=== PATIENT | female | born 1945 | race Caucasian/White ===

== ENCOUNTER 2020-07-08 09:25 | Outpatient (CLI) | payer MEDICARE, BC, SELFPAY ==
--- NOTE | 2020-07-08 09:28 | ECG_ITS ---
Measurements Intervals [place] Rate: 77 P: 30 [place]: 153 QRS: 17 QRSD: 82 T: 12 QT: 347 QTc: 395 Interpretive Statements SINUS RHYTHM MINIMAL Q WAVES- HIGH LATERAL LEADS BASELINE ARTIFACT- II, III, AVF BORDERLINE ECG Electronically Signed On 07-08-2020 10:03:18 CDT by Virgil Gonzalez D.O.
[2020-07-08 09:58] LABS: Anion Gap 8 mmol/L (8-16); Blood Urea Nitrogen 25 mg/dL (7-17); Carbon Dioxide 28 mmol/L (22-30); Chloride 102 mmol/L (98-107); Estimated Glomerular Filt Rate 32; Glucose 121 mg/dL (65-105); Potassium 4.4 mmol/L (3.4-5.0); Sodium 138 mmol/L (137-145)
== END 2020-07-08 09:26 | disposition home or self-care (01) ==
LOC: ANHSURGERY 09:28
PROVIDERS: Anesthesiology; PCP Emergency Medicine; Visit Provider Orthopaedic Surgery
DX: Z01.818 Encounter for other preprocedural examination (principal); I10 Essential (primary) hypertension; R94.31 Abnormal electrocardiogram [ECG] [EKG]
CPT/HCPCS: 36415; 80048; 93005

== ENCOUNTER 2020-07-13 02:04 | Outpatient (CLI) | payer MEDICARE, BC, SELFPAY ==
[2020-07-13 17:03] LABS: SARS-CoV-2 RNA PCR Negative
== END 2020-07-13 02:05 | disposition home or self-care (01) ==
LOC: ANHCOVIDDT 02:04
PROVIDERS: PCP Emergency Medicine; Visit Provider Orthopaedic Surgery
DX: Z01.812 Encounter for preprocedural laboratory examination (principal); Z20.828 Contact with and (suspected) exposure to other viral communicable diseases
CPT/HCPCS: 87635; C9803; U0003

== ENCOUNTER 2020-07-15 00:04 | Day surgery (SDC) | payer MEDICARE, BC, SELFPAY ==
[2020-07-07 14:29] VITALS: BMI 32.1
[2020-07-15] VITALS (9 sets, daily range): BP systolic 108–149; BP diastolic 50–81; PULSE 79–89; RESP 12–18; TEMP 35.9–36.6; O2SAT 94–99
--- NOTE | ~2020-07-15 | XR_ITS ---
EXAMINATION: XR surgery orthopedic EXAM DATE: 07/15/2020 12:05 INDICATION: Hammertoe. Orthopedic surgery. TECHNIQUE: Fluoroscopy used during XR surgery orthopedic performed by Dr. Jorden Lobo MD. The DAP for this procedure 3.9 cGycm2. There was 42 seconds of fluoroscopy time utilized with 2 static i mages available (for this procedure and contralateral foot procedure performed at same time. FINDINGS: Images demonstrate left 2nd toe fixation device bridging the interphalangeal joints. Magaly elate with procedure note. IMPRESSION: Fluoroscopy used during left 2nd toe surgery. Reviewed, dictated and finalized at location A.
--- NOTE | ~2020-07-15 | XR_ITS ---
XR surgery orthopedic DATE: 07/15/2020 12:05 INDICATION: Right second hammertoe TECHNIQUE: 3 AP and lateral spot images of the toes, including AP and lateral views on the right and single frontal view on the left 42 seconds fluoroscopy time 3.8682 cGycm2 Total DAP COMPARISON: None FINDINGS: There is a fixation device extending through the distal, middle and proximal phalanges of t he right second toe. K wires extend along of the phalanges of the second and third and fourth digits, extending into the r espective metatarsal bones. Plate and screws are noted across the first metatarsophalangeal joint. Cerclage wire is noted at a healed fracture deformity at the distal shaft of the fifth metatarsal darrell lópez IMPRESSION: Operative fixation of right second and left second through fourth hammertoes Status post surgical fusion at left first metatarsophalangeal joint Status post operative fixation of distal fifth metatarsal shaft fracture Reviewed, dictated and finalized at [facility]. Reviewed, dictated and finalized at location A. IMPRESSION: Operative fixation of right second and left second through fourth h ammertoes Status post surgical fusion at left first metatarsophalangeal joint Status post operative fixation of distal fifth metatarsal shaft fracture
--- NOTE | 2020-07-15 07:08 | WPDHPUPDATE1 ---
History and Physical Update Update Date/Time: 07/15/20 07:08 History and Physical has been reviewed, including an updated exam of the patient. There are NO changes in the patient's condition.Covid test negative. Risks, benefits, and alternatives have been discussed and questions answered. Patient agrees to proceed with procedure.
[2020-07-15] MEDS: LACTATED RINGERS 1,000 ML 30 ML IV CONT ×2 (08:15→12:10)
[2020-07-15] MEDS: ACETAMINOPHEN 500 MG TABLET 1000 MG PO (08:17)
[2020-07-15] MEDS: KETOROLAC 15 MG/ML VIAL (*BKC) IV PUSH (08:18)
--- NOTE | 2020-07-15 09:17 | WPDANESEPPF ---
Anes - Initial Pre Proc Eval Procedure: Operation Date: 07/15/20 09:30 Proposed Procedures p Left Second and Third Toe Reconstruction, - Jorden Lobo MD s Repair Right Second Hammer Toe - Jorden Lobo MD Date/Time: 07/15/20 09:17 Surgeon: Jorden Lobo MD Pre Op Diagnosis: left 2nd and 3rd crossover toe, rt 2nd hammer toe Patient Data Age: 74 Gender: F Height: 5 ft 1 in Weight: 80.7 kg Last Vital Signs Temp 35.9 C L 07/15/20 07:48 Pulse 79 07/15/20 07:48 Resp 18 07/15/20 07:48 BP 149/75 H 07/15/20 07:48 Pulse Ox 99 07/15/20 07:48 Allergies Allergy/AdvReac Type Severity Reaction Status Date / Time No Known Allergies Allergy Mild Verified 07/07/20 14:24 Home Medications Medication Instructions Recorded Confirmed Type acetaminophen 325 mg tablet 325 mg PO Q6H PRN 06/18/20 07/07/20 History amlodipine 5 mg tablet 5 mg PO DAILY 06/18/20 07/07/20 History ascorbic acid (vitamin C) 1,000 mg 500 mg PO DAILY 06/18/20 07/07/20 History tablet atenolol 50 mg tablet 50 mg PO DAILY 06/18/20 07/07/20 History cholecalciferol (vitamin D3) 125 125 mcg PO DAILY 06/18/20 07/07/20 History mcg (5,000 unit) capsule fenofibrate 160 mg tablet 160 mg PO DAILY 06/18/20 07/07/20 History hydrochlorothiazide 12.5 mg capsule 12.5 mg PO DAILY 06/18/20 07/07/20 History lorazepam 0.5 mg tablet 0.5 mg PO BID PRN 06/18/20 07/07/20 History losartan 50 mg tablet 50 mg PO DAILY 06/18/20 07/07/20 History multivitamin 1 tablet PO DAILY 06/18/20 07/07/20 History omeprazole 20 mg capsule,delayed 20 mg PO DAILY 06/18/20 07/07/20 History release tramadol 50 mg tablet 50 mg PO Q6H PRN 06/18/20 07/07/20 History Patient hx anesthesia problems: post op nausea/vomiting Family hx anesthesia problems: none PMFSH Past Medical History Medical History Crossover toe deformity of left foot GERD (gastroesophageal reflux disease) Hammertoe of second toe of right foot Hypertension Renal cancer Family History Family History Other Family history of arthritis Hypertension Social History Social History Smoking status: Never smoker Alcohol intake: current Living arrangements: with family Spiritual care concerns: No Anes - Eval Final PreProcedure Day of Procedure 07/15/20 09:17 Patient weight: obese Heart: regular rate and rhythm Lungs: clear to auscultation Airway: Mallampati scale class II Neurological: alert and oriented Last oral intake: >/= 8 hours ASA classification: III Emergent: no Anesthetic plan: proceed Anesthesia type and monitoring: general LMA and standard monitoring Informed Consent: The patient's anesthetic plan and its attendant risks and benefits were discussed with the patient/family/POA. Questions were solicited and answers provided to the satisfaction of the patient/family/POA.
[2020-07-15] MEDS: ceFAZolin 2 GM/D5W 50 ML 2 GM/50 ML BAG IVPB (09:42)
--- NOTE | 2020-07-15 12:20 | PM.PROC ---
Procedure Note - Detailed Date of procedure: 07/15/20 Pre-op diagnosis: left 2nd and 3rd crossover toe, rt 2nd hammer toe Post-op diagnosis: same Procedure performed: left 2nd and 3rd crossover toe reconstruction, right 2nd hammertoe Description of procedure: 74-year-old woman with bilateral forefoot deformity. Underwent previous surgery on the left side with subsequent recurrence of deformity of the 2nd 3rd and 4th toe. Has failed conservative treatment and presents for operative treatment. Also has significant hammertoe on the right 2nd toe causes problems with shoe wear and is at risk for ulceration presents for operative treatment. What was done: Informed consent was given. Operative extremities marked in preoperative holding area. Patient received intravenous antibiotics. She Was brought to the the operating room and underwent general anesthetic by the anesthesia team. She was positioned supine on the operating room table. bilateral feet prepped and draped as usual sterile surgical fashion a ChloraPrep skin solution. Time-out performed confirming the patient's site of surgery in the plan. Left foot addressed 1st. Foot and ankle exsanguinated and a calf tourniquet inflated to 225 mmHg. Previous longitudinal incision between the 2nd and 3rd metatarsals made with 15 blade knife. Hemostasis controlled electrocautery. Dissection carried down of the 2nd metatarsophalangeal joint which was noted to have arthrodesis to. Osteotome was used to break open the arthrodesis. Distal 2nd metatarsal shaped with a rongeur. We then position the arthro flex allograft as an interposition in the metatarsophalangeal joint. The toe was then pinned with a 0.062 in K-wire in corrected position. Image intensification confirmed alignment. Thorough irrigation the capsule was closed with 3 Monocryl interrupted suture. Similar procedure for the 3rd toe. Distal 3rd metatarsal shaped with the rongeur. Arthro Flax allograft position as an interposition graft and toe alignment held with a 0.062 in K-wire. Image intensification confirmed alignment. Wound thoroughly irrigated antibiotic solution. Fourth toe noted to have dorsiflexion deformity. Osteoclasis performed and a 0.062 in K-wire was used percutaneously to hold position. Image intensification confirm the final position and alignment. New wound closed with 3 Monocryl interrupted suture. Skin closed with 4 nylon running suture. Sterile dressing applied. Tourniquet released and good capillary refill in the toes noted. Right foot addressed. Foot and ankle exsanguinated and a calf tourniquet inflated to 225 mmHg. Dorsal longitudinal incision made over the 2nd toe proximal interphalangeal joint with 15 blade knife. Extensor tendon excised over the proximal interphalangeal joint. Distal into the proximal phalanx removed with a bone cutter. Proximal into the middle phalanx removed with a rongeur. Thorough irrigation of the joint. Fixation and alignment then achieved with the hammertoe implant. Image intensification confirmed alignment and placement of the hardware. Wound irrigated and closed with 3 0 Monocryl interrupted suture and 4 nylon interrupted suture. Sterile dressing applied. Tourniquet released good capillary refill noted in the toe. Patient awoke from anesthesia, extubated and taken to the recovery room in stable condition. All sponge needle and instrument counts were correct at the end of the case. Implants: 0.062 in K-wire x3, arthro flex soft tissue interposition allograft, 14 mm hammertoe implant x1 Anesthesia: GLMA Surgeon: Jorden Lobo MD [employer]: 1st assistant banquet manager Estimated blood loss (mL): 20 Tourniquet time (min): 63 Drains: No Packing: No Pathology: none sent Complications: None Condition: stable Disposition: PACU
== END 2020-07-15 14:35 | disposition home or self-care (01) ==
PROVIDERS: PCP Emergency Medicine; Visit Provider Orthopaedic Surgery
PROC: (CPT 28750; principal; 2020-07-15 09:30)
PROC: (CPT 28285; 2020-07-15 09:30)
DX: M20.5X2 Other deformities of toe(s) (acquired), left foot (principal); M20.41 Other hammer toe(s) (acquired), right foot; I10 Essential (primary) hypertension; K21.9 Gastro-esophageal reflux disease without esophagitis; Z85.528 Personal history of other malignant neoplasm of kidney; E66.9 Obesity, unspecified; Z68.33 Body mass index [BMI] 33.0-33.9, adult
CPT/HCPCS: 28285; 28308 ×2; A9270; C1713; J0690; J1100; J1885; J2370; J2405; J2704; J3010; J7120

== ENCOUNTER 2022-01-19 10:13 | Outpatient (CLI) | payer MEDICARE, BC, SELFPAY ==
--- NOTE | 2022-01-19 10:30 | ECG_ITS ---
Measurements Intervals [place] Rate: 81 P: 55 MS: 182 QRS: 24 QRSD: 81 T: 44 QT: 360 QTc: 419 Interpretive Statements SINUS RHYTHM COMPARED TO ECG 07/08/2020 10:02:23 NO SIGNIFICANT CHANGES Electronically Signed On 01-19-2022 14:01:32 CDT by Adali Benton M.D.
[2022-01-19 11:49] LABS: Anion Gap 6 mmol/L (8-16); Blood Urea Nitrogen 23 mg/dL (7-17); Calcium 8.8 mg/dL (8.4-10.2); Carbon Dioxide 28 mmol/L (22-30); Chloride 106 mmol/L (98-107); Estimated Glomerular Filt Rate 44; Glucose 136 mg/dL (65-110); Sodium 140 mmol/L (137-145)
== END 2022-01-19 10:14 | disposition home or self-care (01) ==
LOC: ANHSURGERY 10:18
PROVIDERS: Anesthesiology; PCP Nurse Practitioner Family; Visit Provider Orthopaedic Surgery
DX: Z79.899 Other long term (current) drug therapy (principal); I10 Essential (primary) hypertension; Z01.818 Encounter for other preprocedural examination
CPT/HCPCS: 36415; 80048; 93005

== ENCOUNTER 2022-01-23 01:02 | Day surgery (SDC) | payer MEDICARE, BC, SELFPAY ==
[2022-01-17 09:31] VITALS: BMI 31.8
--- NOTE | 2022-01-17 09:43 | PC.NURSE ---
Report to the Outpatient Waiting Room, entrance under the green pavilion located off [facility], at time _0730_ on date _01/23/22_. OR Time: __0930__. - You and your visitor will be asked a series of questions to screen for COVID 19 for your protection. - A mask is required within the hospital. One visitor will be allowed to accompany the patient into the hospital. Patients visitor will be instructed to remain with patient at all times or leave the building. We will allow the visitor to come back to the postoperative area when patient is ready. Preoperative COVID Testing Requirements: NONE Patients may have clear liquids (water, carbonated beverages, clear teas, apple juice) until 3 hours prior to surgery (0630 AM) with a maximum of 20 ounces. - No food from midnight until time of surgery Take the following medications with a SIP of water the morning of surgery: _AMLODIPINE, ATENOLOL, PAIN MED & LORAZEPAM IF NEEDED_ Medications to discontinue per ANESTHESIA - _ALL VITAMINS AND HERBAL SUPPLEMENTS, 3 DAYS PRIOR TO SURGERY, Date to take last dose_01/19/22____ Please no make-up, nail togolese, hairspray, perfume, deodorant, or body powder the day of surgery. No jewelry (including any body piercings) or valuables the day of surgery, leave them at home. Please take a shower or bath the night before, or the morning of, surgery with an antibacterial soap. Wear comfortable, loose fitting clothing. Children are encouraged to wear pajamas. - Jewelry must be removed prior to entering the operating room. Rings and piercings that are not removed may be cut off. - The hospital will not accept responsibility for valuables. - Please leave all valuables, including medications, at home the day of surgery. If you are going home after surgery, a licensed transit driver must drive you home. - NO public transportation without another adult. - We recommend that an adult stay with you for 24 hours following discharge. - We also recommend that you do not drive, make important decision, drink alcoholic beverages, or take any drugs that were not prescribed by your health care provider for at least 24 hours after your discharge time. Follow any additional instructions given to you from your surgeon. Telephone instructions given to ____PT and asked if any additional questions and then verbalized understanding. Patient advised to call surgeon office or pre surgery nurse liaison [phone] if any additional questions.
--- NOTE | 2022-01-21 13:43 | WPDANESEPPF ---
Anes - Initial Pre Proc Eval Procedure: Operation Date: 01/23/22 09:30 Proposed Procedures p Left Foot Second and Third Claw Toe Correction, Left Plantar Fascia Injection - Jorden Lobo MD Date/Time: 01/21/22 13:43 Surgeon: Jorden Lobo MD Pre Op Diagnosis: left 2nd and 3rd claw toe, plantar fascitis Patient Data Age: 76 Gender: F Height: 1.52 m Weight: 74.09 kg Allergies Allergy/AdvReac Type Severity Reaction Status Date / Time No Known Allergies Allergy Mild Verified 01/17/22 09:27 Home Medications Medication Instructions Recorded Confirmed Type acetaminophen 325 mg tablet 325 mg PO Q6H PRN 06/18/20 01/17/22 History amlodipine 5 mg tablet 5 mg PO QAM 06/18/20 01/17/22 History ascorbic acid (vitamin C) 1,000 mg 500 mg PO DAILY 06/18/20 01/17/22 History tablet atenolol 50 mg tablet 50 mg PO DAILY 06/18/20 01/17/22 History cholecalciferol (vitamin D3) 125 125 mcg PO DAILY 06/18/20 01/17/22 History mcg (5,000 unit) capsule hydrochlorothiazide 12.5 mg capsule 12.5 mg PO QAM 06/18/20 01/17/22 History lorazepam 0.5 mg tablet 0.5 mg PO BID PRN 06/18/20 01/17/22 History losartan 50 mg tablet 50 mg PO DAILY 06/18/20 01/17/22 History multivitamin 1 tablet PO DAILY 06/18/20 01/17/22 History omeprazole 20 mg capsule,delayed 20 mg PO DAILY 06/18/20 01/17/22 History release amoxicillin 500 mg capsule 500 mg PO Q12H 01/13/22 01/17/22 History denosumab 60 mg/mL subcutaneous 60 mg SUBCUT [id number] 01/13/22 01/17/22 History syringe magnesium 250 mg tablet 250 mg PO DAILY 01/13/22 01/17/22 History simvastatin 20 mg tablet 20 mg PO HS 01/13/22 01/17/22 History tramadol 50 mg tablet 50 mg PO Q6H PRN 01/13/22 01/17/22 History calcium 600 mg PO DAILY 01/17/22 01/17/22 History Patient hx anesthesia problems: none Family hx anesthesia problems: none Results Review: All pre-operative results and documents have been reviewed as part of the pre-operative evaluation. [facility] Past Medical History Medical History (Updated 01/21/22 @ 13:43 by Laurent Harmon DO) Crossover toe deformity of left foot GERD (gastroesophageal reflux disease) Hammertoe of second toe of right foot Hyperlipidemia Hypertension Plantar fasciitis of left foot Renal cancer Surgical History Surgical History (Updated 01/21/22 @ 13:43 by Laurent Harmon DO) History of nephrectomy History of partial thyroidectomy Family History Family History Other Family history of arthritis Hypertension Social History Social History Smoking status: Never smoker Second hand tobacco smoke exposure: No Alcohol intake: current Substance use: never Substance use type: does not use Living arrangements: alone Spiritual care concerns: No Anes - Eval Final PreProcedure Day of Procedure 01/21/22 13:43 Patient weight: obese Heart: regular rate and rhythm Lungs: clear to auscultation and normal air movement Airway: Mallampati scale class II Neurological: alert and oriented Last oral intake: >/= 8 hours ASA classification: III Emergent: no Anesthetic plan: proceed Anesthesia type and monitoring: general LMA and standard monitoring Results Review: All pre-operative results and documents have been reviewed as part of the pre-operative evaluation. Informed Consent: The patient's anesthetic plan and its attendant risks and benefits were discussed with the patient/family/POA. Questions were solicited and answers provided to the satisfaction of the patient/family/POA.
[2022-01-23] VITALS (8 sets, daily range): BP systolic 101–136; BP diastolic 61–75; PULSE 71–84; RESP 12–16; TEMP 36–36.6; O2SAT 96–100
--- NOTE | ~2022-01-23 | XR_ITS ---
EXAMINATION: XR surgery orthopedic DATE: 01/23/2022 11:42 INDICATION: The second and third claw toe correction TECHNIQUE: 4 fluoroscopic images of the left forefoot were obtained during procedure performed by Dr. Lobo. Radiologist was not present for the imaging or procedure. The amount of fluoroscopy time us ed during this procedure was 0.3 minutes. COMPARISON: Left foot radiographs dated 08/03/2020 FINDINGS: New dorsal plate and screw fixations across the second and third metatarsophalangeal joints. Prior os teotomies at the heads of the second-fourth metatarsals with residual lucent fixation pin tracks at t he second-fourth toes. Solidly fused first metatarsophalangeal arthrodesis with compression screw and dorsal plate and screw fixation. Old healed osteotomy at the neck of the fifth metatarsal with cercl age wire fixation. No fracture. Expected small amount of gas in the soft tissues surrounding the seco nd third metatarsophalangeal joints. IMPRESSION: 1. Fluoroscopy utilized during arthrodesis with plate and screw fixations at the second-third metatar sophalangeal joints. See procedure note for further detail. 2. Additional chronic postoperative changes as detailed above. Reviewed, dictated and finalized at location A. IMPRESSION: 1. Fluoroscopy utilized during arthrodesis with plate and screw fixations at th e second-third metatarsophalangeal joints. See procedure note for further detai l. 2. Additional chronic postoperative changes as detailed above.
--- NOTE | 2022-01-23 07:30 | WPDHPUPDATE1 ---
History and Physical Update Update Date/Time: 01/23/22 07:30 History and Physical has been reviewed, including an updated exam of the patient. There are NO changes in the patient's condition. Risks, benefits, and alternatives have been discussed and questions answered. Patient agrees to proceed with procedure.
[2022-01-23] MEDS: LACTATED RINGERS 1,000 ML 30 ML IV CONT ×2 (08:00→11:48)
[2022-01-23] MEDS: ACETAMINOPHEN 500 MG TABLET 1000 MG PO (08:47)
[2022-01-23] MEDS: KETOROLAC 15 MG/ML VIAL (*BKC) IV PUSH (08:48)
[2022-01-23] MEDS: ceFAZolin 2 GM/D5W 50 ML 2 GM/50 ML BAG IVPB (09:42)
[2022-01-23] MEDS: BUPIVACAINE HCL 0.5% PF 30 ML VIAL 20 ML INFILTRATE (10:14)
[2022-01-23] MEDS: methylPREDNISolone ACETATE 40 MG/ML VIAL IM (11:35)
--- NOTE | 2022-01-23 12:04 | W.PM.PROC2 ---
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 She has failed previous treatment with metatarsal head resection and has had recurrent deformity. Difficulty wearing shoes in with activity. She presents for operative treatment. Recalcitrant left plantar heel pain as well. Has elected for plantar fascia injection. Description of Procedure Patient was identified in the preoperative holding area and the operative extremity was marked. Previous discussion of the risks, benefits and alternatives of surgery was reviewed with the patient. Informed consent given. The patient was then taken the operating room she underwent a general anesthetic by the anesthesia team. She was positioned supine on the operating room table. Left foot and ankle prepped and draped usual sterile surgical fashion using ChloraPrep skin solution. Foot ankle exsanguinated and calf tourniquet inflated to 225 mmHg. Previous dorsal longitudinal incision in the 2nd webspace utilized and made with a 15 blade knife. Hemostasis controlled electrocautery. The 2nd metatarsophalangeal joint was then exposed. Joint was reduced and provisionally pinned. Fixation achieved with a 6 hole plate, 1.6 mm. Image intensification confirmed alignment. Dissection was then carried down to the 3rd metatarsophalangeal joint which also was realigned and provisionally pinned. Fixation achieved with a 6 hole 1.6 mm plate. Image intensification confirmed final alignment. Wound thoroughly irrigated with antibiotic solution. The provisional K-wires were removed. Soft tissue closed with 3-0 Monocryl interrupted suture. Skin repaired with 4-0 nylon running suture. 25 gauge needle then used to inject 40 mg of Depo-Medrol into the left plantar heel and origin of plantar fascia. Tourniquet then released good capillary refill noted in the toes. Sterile dressing applied. Patient woke from anesthesia, extubated taken to recovery room stable condition. All sponge, needle instrument counts correct in the case. Implants Arthrex 6 hole 1.6 mm plate x2 with screws. Estimated Blood Loss 10 Tourniquet Time 70 Drains No Packing No Pathology None sent Complications None Condition Stable Disposition PACU
[2022-01-23 13:20] LABS: Hepatitis B Surface Antigen Negative (Negative)
[2022-01-23 13:37] LABS: HIV 1/2 Ab P24 Ag Result Negative (Negative); Hepatitis C Virus Antibody Negative (Negative)
== END 2022-01-23 13:40 | disposition home or self-care (01) ==
PROVIDERS: PCP Nurse Practitioner Family; Visit Provider Orthopaedic Surgery
PROC: (CPT 28899; principal; 2022-01-23 09:30)
DX: M20.5X2 Other deformities of toe(s) (acquired), left foot (principal); M72.2 Plantar fascial fibromatosis; K21.9 Gastro-esophageal reflux disease without esophagitis; E78.5 Hyperlipidemia, unspecified; I10 Essential (primary) hypertension; Z85.528 Personal history of other malignant neoplasm of kidney; Z90.89 Acquired absence of other organs; Z90.5 Acquired absence of kidney; E66.9 Obesity, unspecified; Z68.32 Body mass index [BMI] 32.0-32.9, adult; M25.572 Pain in left ankle and joints of left foot; Z11.4 Encounter for screening for human immunodeficiency virus [HIV]
CPT/HCPCS: 28899; 20550; 36415; 86703; 86803; 87340; A9270; G0432; J0690; J1030; J1100; J1200; J1885; J2250; J2370; J2405; J2704; J3010; J7120